=== PATIENT | female | born 1990 | race Caucasian/White ===

== ENCOUNTER 2021-09-12 10:01 | Day surgery (SDC) | payer BC ==
[2021-09-12 10:36] VITALS: BMI 32.1
[2021-09-12] MEDS ORDERED: hydrALAZINE 20 MG/ML VIAL SLOW IVP PRN (11:55)
== END 2021-09-12 13:17 | disposition home health service (06) ==
LOC: CSHLD/OP 10:01
PROVIDERS: ATTEND Obstetrics & Gynecology
DX: O47.1 False labor at or after 37 completed weeks of gestation (principal); Z3A.37 37 weeks gestation of pregnancy; Z88.0 Allergy status to penicillin; Z88.1 Allergy status to other antibiotic agents
CPT/HCPCS: 99283

== ENCOUNTER 2021-09-22 17:03 | Outpatient (CLI) | payer BC ==
[2021-09-23 19:35] LABS: SARS-CoV-2 PCR by NAA Not Detected (NotDetected)
== END 2021-09-22 17:04 | disposition home or self-care (01) ==
LOC: CSHLAB 17:03
PROVIDERS: ATTEND Obstetrics & Gynecology
DX: Z20.822 Contact with and (suspected) exposure to COVID-19 (principal)
CPT/HCPCS: U0003; U0005

== ENCOUNTER 2021-09-23 13:22 | Day surgery (SDC) | payer BC ==
[2021-09-23 14:11] VITALS: BMI 32.1
[2021-09-23 14:12] LABS: Fetal Membranes Rupture No Membranes Rupture (No Rupture)
== END 2021-09-23 15:00 | disposition home or self-care (01) ==
LOC: CSHLD/OP 13:22
PROVIDERS: ATTEND Obstetrics & Gynecology
DX: O23.593 Infection of other part of genital tract in pregnancy, third trimester (principal); Z3A.39 39 weeks gestation of pregnancy; Z86.16 Personal history of COVID-19; Z88.0 Allergy status to penicillin; Z88.1 Allergy status to other antibiotic agents
CPT/HCPCS: 84112; 87480; 87510; 87660

== ENCOUNTER 2021-09-24 20:22 | Inpatient (IN) | payer BC ==
[2021-09-24] MEDS ORDERED: Ondansetron PF 4 MG/2 ML Vial IVP PRN ×2 (20:33→21:34)
[2021-09-24] MEDS ORDERED: Ibuprofen 800 MG TAB PO PRN (20:33)
[2021-09-24] MEDS ORDERED: hydrALAZINE 20 MG/ML VIAL SLOW IVP PRN (20:33)
[2021-09-24] MEDS ORDERED: Promethazine HCl 25 MG/ML VIAL IM PRN ×2 (20:33→21:34)
[2021-09-24] MEDS ORDERED: Lidocaine 1% (PF) 30 ML VIAL SC PRN (20:33)
[2021-09-24] MEDS ORDERED: HYDROcodone/Acetaminophen 5/325 mg Tablet PO PRN ×2 (20:33)
[2021-09-24] MEDS ORDERED: Butorphanol Tartrate 1 MG/ML VIAL SLOW IVP PRN (20:33)
[2021-09-24] MEDS ORDERED: Lactated Ringer's 1,000 ML IV SCH ×2 (20:45)
[2021-09-24] MEDS ORDERED: NS w/ Oxytocin 30 units 500 ML IV SCH (20:45)
[2021-09-24 20:52] VITALS: BMI 31.1
[2021-09-24] MEDS ORDERED: Fentanyl 2 mcg/Bup 0.1% Cadd 100 ML ONE (21:00)
[2021-09-24 21:08] LABS: Hemoglobin 10.5 g/dL (12.0-15.5); Mean Corpuscular HGB CONC 32.3 g/dL (32.0-36.0); Mean Corpuscular Hemoglobin 25.1 pg (27.0-33.0); Mean Corpuscular Volume 77.6 fl (81.6-98.3); Mean Platelet Volume 11.2 fl (7.4-10.4); Platelet Count 235 10x3/uL (150-450); RBC Distribution Width 14.8 % (11.5-14.5); Red Blood Cell (RBC) Count 4.19 10x6/uL (3.90-5.03); White Blood Cell (WBC) Count 11.5 10x3/uL (3.5-10.5)
[2021-09-24 21:23] LABS: Fetal Membranes Rupture No Membranes Rupture (No Rupture)
[2021-09-24] MEDS ORDERED: Hydrocerin (Eucerin) Cream 120 gm Jar TOP PRN (21:34)
[2021-09-24] MEDS ORDERED: ePHEDrine Sulfate 50 MG/10 ML VIAL SLOW IVP PRN (21:34)
[2021-09-24] MEDS ORDERED: Lactated Ringer's 500 ML IV PRN (21:34)
[2021-09-24] MEDS ORDERED: Naloxone HCl 0.4 mg/ml Vial IVP PRN ×2 (21:34)
[2021-09-24] MEDS ORDERED: diphenhydrAMINE 50 MG/ML VIAL IVP PRN (21:34)
[2021-09-24] MEDS ORDERED: Acetaminophen 325 MG TAB PO PRN (21:34)
[2021-09-24 21:42] LABS: Hep B Surf Ag Non-Reactive S/CO (NonReactive); Syphilis Antibody Nonreactive (Nonreactive); Syphilis Antibody Index 0.06 S/CO (<1.00 Non-Reactive)
[2021-09-24] MEDS ORDERED: Fentanyl 2 mcg/Bupivacaine 0.1% Cassette 100 ML EPIDURAL SCH (21:45)
[2021-09-24] MEDS ORDERED: Communication Order-Pharmacy FS SCH (21:45)
[2021-09-24 21:47] LABS: HBSAg Index 0.26 S/CO (0-0.99)
[2021-09-25] MEDS: NS w/ Oxytocin 30 units 500 ML IV SCH ×2 (01:10→03:30)
[2021-09-25 03:04] LABS: HIV (1/2) Antibody/Antigen Non-Reactive (NonReactive); HIV 1/2 INDEX 0.13 S/CO (<1.00)
[2021-09-25] MEDS ORDERED: Promethazine HCl 25 MG/ML VIAL IM PRN (03:32)
[2021-09-25] MEDS ORDERED: NS w/ Oxytocin 30 units 500 ML IV SCH (03:32)
[2021-09-25] MEDS ORDERED: Lanolin Ointment 7 GM TUBE TOP PRN (03:32)
[2021-09-25] MEDS ORDERED: Boostrix 0.5 ML (Tdap) VIAL IM ONE (03:32)
[2021-09-25] MEDS ORDERED: Ondansetron PF 4 MG/2 ML Vial IVP PRN (03:32)
[2021-09-25] MEDS ORDERED: Benzocaine-Menthol 82.5 ML CAN TOP PRN (03:32)
[2021-09-25] MEDS ORDERED: Bisacodyl 10 MG SUPP PR PRN (03:32)
[2021-09-25] MEDS ORDERED: hydrALAZINE 20 MG/ML VIAL SLOW IVP PRN (03:32)
[2021-09-25] MEDS ORDERED: Preparation H Ointment 28 GM TUBE PR PRN (03:32)
[2021-09-25] MEDS ORDERED: Zolpidem Tartrate 5 MG TAB PO PRN (03:32)
[2021-09-25] MEDS ORDERED: Milk Of Magnesia 30 ML UDCUP PO PRN (03:32)
[2021-09-25] MEDS ORDERED: diphenhydrAMINE 25 MG CAP PO PRN (03:32)
[2021-09-25] MEDS ORDERED: HYDROcodone/Acetaminophen 5/325 mg Tablet PO PRN ×2 (03:32)
[2021-09-25] MEDS: Ibuprofen 800 MG TAB PO SCH ×3 (05:07→21:04)
[2021-09-25] MEDS: Docusate Calcium (SURFAK) 240 MG CAP PO SCH ×2 (09:06→21:04)
[2021-09-25] MEDS: Prenatal Vitamin 1 TAB PO SCH (09:06)
[2021-09-26] MEDS: Ibuprofen 800 MG TAB PO SCH (05:03)
[2021-09-26 07:26] VITALS: BP 98/51; TEMP 98.1
[2021-09-26] MEDS: Prenatal Vitamin 1 TAB PO SCH (09:20)
[2021-09-26] MEDS: Docusate Calcium (SURFAK) 240 MG CAP PO SCH (09:20)
== END 2021-09-26 12:20 | disposition home or self-care (01) | DRG 807 ==
LOC: CSHLD/OP 20:22 → CSHLD 20:23 → CSHPP 20:24
PROVIDERS: ADMIT Obstetrics & Gynecology; ATTEND Obstetrics & Gynecology
PROC: 10E0XZZ Delivery of Products of Conception, External Approach (ICD-10-PCS; principal; 2021-09-25)
PROC: 0KQM0ZZ Repair Perineum Muscle, Open Approach (ICD-10-PCS; 2021-09-25)
DX: O70.1 Second degree perineal laceration during delivery (principal); Z37.0 Single live birth; Z3A.39 39 weeks gestation of pregnancy
CPT/HCPCS: 51702; 84112; 85027; 86780; 86850; 86900; 86901; 87340; 87389; 87480; 87510; 87660; 99285; J2590; U0003; U0005

== ENCOUNTER 2022-06-12 01:42 | Emergency (ER) | payer BC | END 2022-06-12 03:51 | disposition left against medical advice (07) | LOC: CSHERS 01:42 | DX: Z53.21 Procedure and treatment not carried out due to patient leaving prior to being seen by health care provider (principal) ==

== ENCOUNTER 2022-06-13 22:17 | Emergency (ER) | payer BC ==
[2022-06-13 23:16] LABS: #Basophils 0.1 10x3/uL (0.0-0.2); #Eosinphils 0.1 10x3/uL (0.0-0.5); #Monocytes 0.9 10x3/uL (0.0-1.1); #Neutrophils 10.8 10x3/uL (1.5-8.4); %Basophils 0.4 % (0.0-2.0); %Eosinophils 0.3 % (0.0-6.0); %Lymphocytes 17.8 % (18.0-47.0); %Monocytes 6.1 % (0.0-10.0); %Neutrophils 75.1 % (40.0-75.0); Hemoglobin 12.7 g/dL (12.0-15.5); Mean Corpuscular HGB CONC 32.4 g/dL (32.0-36.0); Mean Corpuscular Hemoglobin 26.7 pg (27.0-33.0); Mean Corpuscular Volume 82.4 fl (81.6-98.3); Mean Platelet Volume 10.3 fl (7.4-10.4); Platelet Count 319 10x3/uL (150-450); RBC Distribution Width 14.4 % (11.5-14.5); Red Blood Cell (RBC) Count 4.76 10x6/uL (3.90-5.03); White Blood Cell (WBC) Count 14.3 10x3/uL (3.5-10.5)
[2022-06-13 23:28] LABS: ALT (SGPT) 37 U/L (8-55); AST (SGOT) 37 U/L (5-34); Albumin 4.2 g/dL (3.5-5.0); Alkaline Phosphatase 60 U/L (40-110); Anion Gap 13 mmol/L (10-20); BUN (Urea Nitrogen) 12 mg/dL (7.0-18.7); Bilirubin, Total 0.3 mg/dL (0.2-1.2); Calc. Creatinine Clearance 0 mL/min (70-130); Calcium 9.3 mg/dL (7.8-10.44); Carbon Dioxide 23 mmol/L (22-29); Chloride 107 mmol/L (98-107); Estimated GFR 95; Globulin 3.1 g/dL (2.4-3.5); Glucose 102 mg/dL (70-105); Lipase 21 U/L (8-78); Potassium 4.2 mmol/L (3.5-5.1); Protein, Total 7.3 g/dL (6.0-8.3); Sodium 139 mmol/L (136-145)
[2022-06-14 00:35] LABS: Bilirubin Negative (Negative); Blood, Urine Negative (Negative); Clarity Clear (Clear); Glucose, Urine (Dipstick) Negative (Negative); Ketone, Urine 15 mg/dL (Negative); Leukocyte Negative (Negative); Nitrite Negative (Negative); Protein, Urine (Dipstick) Negative (Neg-Trace); Specific Gravity, Urine 1.025 (1.005-1.030); Urobilinogen 0.2 mg/dL (Less than 2)
[2022-06-14 00:36] LABS: Pregnancy Test - Urine (BHCG) Negative (Negative); Pregu Control Background? CLEAR/WHITE (CLR/WHITE); Pregu Control Bar Appear? YES (CONTROL BAR); Specific Gravity 1.025 (1.002-1.036)
== END 2022-06-14 03:15 | disposition home or self-care (01) ==
LOC: CSHERS 22:17
DX: R10.9 Unspecified abdominal pain (principal)
CPT/HCPCS: 74176; 80053; 81003; 81025; 83690; 85025